=== PATIENT | male | born 2000 | race African-American/Black ===

== ENCOUNTER 2022-06-16 17:34 | Emergency (ER) | payer OTHER ==
[2022-06-16] MEDS ORDERED: Cyclobenzaprine 10 MG TAB ONE (19:00)
[2022-06-16] MEDS ORDERED: Ketorolac Tromethamine 30 MG/ML VIAL ONE (19:00)
== END 2022-06-16 19:27 | disposition home or self-care (01) ==
LOC: ERS 17:34
DX: T14.8XXA Other injury of unspecified body region, initial encounter (principal); M54.2 Cervicalgia; M54.50 Low back pain, unspecified; V89.2XXA Person injured in unspecified motor-vehicle accident, traffic, initial encounter
CPT/HCPCS: 72040; 72100; J1885